=== PATIENT | female | born 1935 | race Caucasian/White ===

== ENCOUNTER 2016-12-08 12:53 | Inpatient (IN) | payer MEDICARE, BC ==
[2016-12-08] MEDS ORDERED: Ketorolac 30 MG/ML SDV IVPUSH PRN (13:17)
[2016-12-08] MEDS ORDERED: Vancomycin 500 MG SDV IV SCH (13:45)
[2016-12-08] MEDS: Sodium Chloride 0.9% 10 ML Syringe FLUSH PRN (13:46)
[2016-12-08] MEDS: Sodium Chloride 0.9% 250 ML IV SCH (13:46)
[2016-12-08] MEDS ORDERED: Vancomycin 500 MG, Vancomycin 750 MG in Sodium Chloride 0.9% 250 ML IV SCH (14:00)
[2016-12-08] MEDS ORDERED: Ampicillin/Sulbactam Na 3 GM in Sodium Chloride 0.9% 100 ML IV SCH (16:00)
--- NOTE | 2016-12-08 16:59 | PCM.HP ---
H&P History of Present Illness - General Date of Service: 12/08/16 Admit Problem/Dx: Admission Diagnosis/Problem Admission Diagnosis/Problem Cellulitis Source of Information: Patient History Limitations: Reports: No Limitations - History of Present Illness Initial Comments - Free Text/Narative: 81-year-old female admitted from the clinic because of pain in the right foot. This started last week when she stepped on a piece of stick. She developed infection that has been treated with initially clindamycin and then Levaquin. However she failed outpatient therapy with the pain and swelling getting worse and any weightbearing makes it worse. There has been no ulceration,neither is she attended with any fever or chills. She is otherwise healthy with very few active medical problems including osteoarthritis and knee replacement on that side on the right.She also has stable HTN head Pain Score (Numeric/FACES): 4 Rt foot Pain Score (Numeric/FACES): 8 - Related Data Allergies/Adverse Reactions: Allergies Allergy/AdvReac Type Severity Reaction Status Date / Time No Known Allergies Allergy Verified 12/08/16 15:38 Home Medications: Home Meds Aspirin [Adult Low Dose Aspirin EC] 81 mg PO DAILY 11/27/13 [History] Gluc 2KCl/Chondr/Makayla Hy/Hy Ac [Glucosamine & Chondroitin Cap] 1 each PO DAILY 11/27/13 [History] Multivitamin [Multivitamins] 1 cap PO DAILY 11/27/13 [History] Acetaminophen 1,000 mg PO Q8H PRN 04/23/16 [History] Acetaminophen/Diphenhydramine [Tylenol Pm Ex-Strength Caplet] 1 tab PO BEDTIME PRN 04/23/16 [History] Calcium Carbonate/Vitamin D3 [Calcium 500-Vit D3 200 Tablet] 1 tab PO DAILY [History] E-Z Eye Vitamin 2 tab PO DAILY 04/23/16 [History] Metoprolol Succinate 50 mg PO DAILY 04/23/16 [History] Meloxicam [Mobic] 15 mg PO DAILY 12/08/16 [History] Past Medical History HEENT History: Reports: Cataract, Hard of Hearing, Impaired Vision Cardiovascular History: Reports: Arrhythmia Genitourinary History: Reports: Renal Calculus, UTI, Recurrent PEDIATRIC DIETICIAN History: Reports: Dysfunctional Uterine Bleeding, Fibroids, , Spontaneous Other OB/BYN History: HYSTERECTOMY Musculoskeletal History: Reports: Arthritis Endocrine/Metabolic History: Reports: Osteoporosis Hematologic History: Reports: Anemia Oncologic (Cancer) History: Reports: Other (See Below) Other Oncologic History: SKIN CA - Infectious Disease History Infectious Disease History: Reports: Chicken Pox, Mumps - Past Surgical History HEENT Surgical History: Reports: Cataract Surgery, Tonsillectomy GI Surgical History: Reports: Colonoscopy Musculoskeletal Surgical History: Reports: Joint Replacement, Knee Replacement Social & Family History - Family History Family Medical History: Noncontributory - Tobacco Use Smoking Status *Q: Never Smoker Second Hand Smoke Exposure: No - Caffeine Use Caffeine Use: Reports: Coffee, Soda - Alcohol Use Days Per Week of Alcohol Use: 0 Number of Drinks Per Day: 0 Total Drinks Per Week: 0 - Recreational Drug Use Recreational Drug Use: No Drug Use in Last 12 Months: No H&P Review of Systems - Review of Systems: Review Of Systems: ROS reveals no pertinent complaints other than HPI. Exam - Exam Exam: See Below - Vital Signs Vital Signs: Last Vital Signs Temp 98.1 F 12/08/16 15:57 Pulse 65 12/08/16 15:57 Resp 18 12/08/16 15:57 BP 126/65 12/08/16 15:57 Pulse Ox 100 12/08/16 15:57 Weight: 71.622 kg - Exam General: Alert, Oriented, 4 HEENT: PERRLA, Hearing Intact, Mucosa Moist & [place], Nares Patent, Normal Nasal Septum, Posterior Pharynx Clear, Conjunctiva Clear, EOMI, EACs Clear, TMs Clear Neck: Supple, Trachea Midline, 2 Lungs: Clear to Auscultation, Normal Respiratory Effort Cardiovascular: Regular Rate, Regular Rhythm Abdomen: Normal Bowel Sounds, Soft (Female) Exam: Deferred Rectal (Female) Exam: Deferred Back Exam: Normal Inspection, Full Range of Motion, NT Extremities: Other (Rt foot red,up to ankle. First joint inflamed,tender.) Skin: Warm Neurological: Cranial Nerves Intact, Reflexes Equal Bilateral Neuro Extensive - Mental Status: Alert, Oriented x3, Normal Mood/Affect, Normal Cognition Neuro Extensive - Motor, Sensory, Reflexes: CN II-XII Intact, Normal Gait, Normal Reflexes Psychiatric: Alert - Patient Data Lab Results last 24 hrs: Laboratory Results - last 24 hr 12/08/16 12/08/16 12/08/16 Range/Units 13:40 13:40 13:40 WBC 8.3 (4.5-12.0) X10-3/uL RBC 3.77 (3.23-5.20) x10(6)uL Hgb 11.4 L (11.5-15.5) g/dL Hct 34.0 (30.0-51.3) % MCV 90.0 (80-96) fL MCH 30.2 (27.7-33.6) pg MCHC 33.6 (32.2-35.4) g/dL RDW 12.8 (11.5-15.5) % Plt Count 307 (125-369) X10(3)uL MPV 8.3 (7.4-10.4) fL Neut % (Auto) 80.5 (46-82) % Lymph % (Auto) 6.5 L (13-37) % Dewey % (Auto) 9.4 (4-12) % Eos % (Auto) 3 (1.0-5.0) % Baso % (Auto) 0 (0-2) % Neut # (Auto) 6.7 (1.6-8.3) # Lymph # (Auto) 0.5 L (0.6-5.0) # Dewey # (Auto) 0.8 (0.0-1.3) # Eos # (Auto) 0.3 (0.0-0.8) # Baso # (Auto) 0.0 (0.0-0.2) # ESR 68 H (0-20) mm/hr Sodium (135-145) mmol/L Potassium (3.5-5.3) mmol/L Chloride (100-110) mmol/L Carbon Dioxide (23-29) mmol/L BUN (8-23) mg/dL Creatinine (0.6-1.3) mg/dL Est Cr Clr Drug Dosing mL/min Estimated GFR (MDRD) (>60) BUN/Creatinine Ratio (9-20) Glucose (80-116) mg/dL Uric Acid 5.3 (3.0-7.0) mg/dL Calcium (8.6-10.2) mg/dL C-Reactive Protein 10.7 H* (0.0-1.0) mg/dL 12/08/16 Range/Units 13:40 WBC (4.5-12.0) X10-3/uL RBC (3.23-5.20) x10(6)uL Hgb (11.5-15.5) g/dL Hct (30.0-51.3) % MCV (80-96) fL MCH (27.7-33.6) pg MCHC (32.2-35.4) g/dL RDW (11.5-15.5) % Plt Count (125-369) X10(3)uL MPV (7.4-10.4) fL Neut % (Auto) (46-82) % Lymph % (Auto) (13-37) % Dewey % (Auto) (4-12) % Eos % (Auto) (1.0-5.0) % Baso % (Auto) (0-2) % Neut # (Auto) (1.6-8.3) # Lymph # (Auto) (0.6-5.0) # Dewey # (Auto) (0.0-1.3) # Eos # (Auto) (0.0-0.8) # Baso # (Auto) (0.0-0.2) # ESR (0-20) mm/hr Sodium 140 (135-145) mmol/L Potassium 4.5 (3.5-5.3) mmol/L Chloride 108 (100-110) mmol/L Carbon Dioxide 22 L (23-29) mmol/L BUN 19 (8-23) mg/dL Creatinine 1.0 (0.6-1.3) mg/dL Est Cr Clr Drug Dosing 43.53 mL/min Estimated GFR (MDRD) 53 L (>60) BUN/Creatinine Ratio 19.0 (9-20) Glucose 110 (80-116) mg/dL Uric Acid (3.0-7.0) mg/dL Calcium 9.1 (8.6-10.2) mg/dL C-Reactive Protein (0.0-1.0) mg/dL Result Diagrams: 12/08/16 13:40 12/08/16 13:40 *Q Meaningful Use (ADM) - VTE *Q VTE Criteria *Q: - Stroke *Q Stroke Criteria *Q: - AMI *Q AMI Criteria *Q: - Problem List (1) Cellulitis SNOMED Code(s): 307587816 ICD Code: L03.90 - CELLULITIS, UNSPECIFIED Status: Acute Current Visit: Yes Qualifiers: Site of cellulitis: extremity (2) HTN (hypertension) SNOMED Code(s): 47275676 ICD Code: I10 - ESSENTIAL (PRIMARY) HYPERTENSION Status: Acute Current Visit: Yes Qualifiers: Hypertension type: essential hypertension Qualified Code(s): I10 - Essential (primary) hypertension (3) Osteoarth NOS-unspec SNOMED Code(s): 401297519 ICD Code: M19.90 - UNSPECIFIED OSTEOARTHRITIS, UNSPECIFIED SITE Status: Acute Current Visit: Yes Qualifiers: Osteoarthritis location: knee Problem List Initiated/Reviewed/Updated: Yes Orders Last 24hrs: Active Orders 24 hr Category Date Time Status Admission Status [Patient Status] [ADT] Routine ADT 12/08/16 13:02 Active Oxygen Therapy [RC] PRN Care 12/08/16 13:17 Active Up ad Kandis [RC] ASDIRECTED Care 12/08/16 13:17 Active VTE/DVT Education [RC] Per Unit Routine Care 12/08/16 13:17 Active Vital Signs [RC] 08,16,00 Care 12/08/16 13:17 Active Consult to Physician [CONS] Routine Cons 12/08/16 13:17 Ordered Regular Diet [DIET] Diet 12/08/16 Breakfast Active Ciprofloxacin [Ciprofloxacin HCl] Med 12/08/16 21:00 Active 250 mg PO BID Ciprofloxacin [Ciprofloxacin HCl] Med 12/08/16 21:00 Active 500 mg PO BID Ketorolac [Toradol] Med 12/08/16 13:17 Active 15 mg IVPUSH Q6H PRN Sodium Chloride 0.9% [Normal Saline] 250 ml Med 12/08/16 14:00 Active IV ASDIRECTED Sodium Chloride 0.9% [Saline Flush] Med 12/08/16 13:17 Active 10 ml FLUSH ASDIRECTED PRN Vancomycin Med 12/08/16 13:45 Pending See Dose Instructions IV ASDIRECTED Vancomycin 500 mg Med 12/09/16 14:00 Active Vancomycin 750 mg Sodium Chloride 0.9% [Normal Saline] 250 ml IV Q24H Peripheral IV Insertion Adult [OM.PC] Routine Oth 12/08/16 13:17 Ordered Resuscitation Status Routine Resus Stat 12/08/16 13:17 Ordered Medication Orders Ciprofloxacin (Ciprofloxacin Hcl) 500 mg PO BID OREN Ciprofloxacin (Ciprofloxacin Hcl) 250 mg PO BID OREN Sodium Chloride (Normal Saline) 250 mls @ 100 mls/hr IV ASDIRECTED OREN Last Admin: 12/08/16 13:46 Dose: 100 mls/hr Vancomycin HCl 500 mg/Vancomycin HCl 750 mg/ Sodium Chloride 250 mls @ 167 mls/ hr IV Q24H OREN Ketorolac Tromethamine (Toradol) 15 mg IVPUSH Q6H PRN PRN Reason: Pain (moderate 4-6) Sodium Chloride (Saline Flush) 10 ml FLUSH ASDIRECTED PRN PRN Reason: Keep Vein Open Last Admin: 12/08/16 13:46 Dose: 10 ml Vancomycin HCl (Vancomycin) 0 mg IV ASDIRECTED [facility] Assessment/Plan Comment:: I have consulted Dr. Mingo Manrique to make sure there is no septic arthritis of the joint. In the meantime I've chosen vancomycin and Rocephin IV for treatment. I've also recommended warm compresses,elevation and Tylenol or ibuprofen when necessary for pain anticipate a one to two-day hospital stay. We 'll continue with home medications for hypertension OA
[2016-12-08] MEDS: Ciprofloxacin 250 MG Tab PO SCH (21:18)
[2016-12-08] MEDS: Ciprofloxacin 500 MG Tab PO SCH (21:18)
--- NOTE | 2016-12-09 01:00 | CONS ---
DATE OF CONSULTATION: 12/08/2016 PROBLEM: Cellulitis, right foot. PERTINENT HISTORY: This healthy 81-year-old white female states that she stepped on a toothpick on approximately November 29. She thinks that the toothpick came out completely intact. She states there was a moderate amount of bleeding. She thought nothing of it and then started noticing some pain. On and it got worse, so she presented to [facility] and was examined by Dr. Rodriguez, who started her on clindamycin 300 mg p.o. q.i.d. She did not get better, so she returned to the clinic and was started on Levaquin, that also did not give her any relief, so she was admitted to the hospital for observation, intravenous medication, and consult. This patient states that she has had no other injuries to the foot. She has no real active pain when she is sitting, ambulation does cause some pain. Pain is more on the dorsal aspect of the foot. She started to note some swelling and mild erythema also on the top of the foot basically proximal to the toes. She denies any pain when moving the great toe, but when she flexes and extends her other toe she states that there is pain over the dorsal aspect of her foot. She has not run any fever, although she does report "a temperature of 99." PHYSICAL EXAMINATION: Today, is resting comfortably. Her vital signs are stable. There is some mild swelling of the dorsal aspect of the foot, it is approximately about 3.5 inches by about 3 inches. Very light erythema over the great toe and minimal swelling over the great toe. Again with passive range of motion of her toes, she has pain over the dorsal aspect signifying she has inflammation around the tendons, flexing of the ankle or great toe produces no discomfort. I cannot blot any fluid. Neurovascular integrity is intact. Dr. Blum has ordered CBC, appropriate panel and C-reactive protein. He is starting her on vancomycin 1 g every 12 hours. X-rays were taken and "are normal " ASSESSMENT: Puncture wound, right first toe with secondary cellulitis. PLAN: I would concur with the vancomycin for a possible methicillin-resistant Staph. Since this is a puncture wound and puncture wounds are often associated with Pseudomona I would recommend adding ciprofloxacin 750 p.o. every 12 hours. I will follow up with the patient tomorrow and observe for any increasing erythema or swelling pain or temperature that may necessitate surgical intervention, however I believe with the two antibiotics we have the puncture wound with possible Pseudomonas covered as well as methicillin-resistant Staph. /[id number] HORACIO/JESSICA MTDFern
[2016-12-09] MEDS: Acetaminophen 325 MG Tab PO PRN ×2 (01:48→13:22)
[2016-12-09] MEDS: Ciprofloxacin 500 MG Tab PO SCH ×2 (09:03→20:49)
[2016-12-09] MEDS: Ciprofloxacin 250 MG Tab PO SCH ×2 (09:03→20:50)
--- NOTE | 2016-12-09 12:35 | PN ---
DATE SEEN: 12/09/2016 CHIEF COMPLAINT: Right foot cellulitis. HISTORY OF PRESENT ILLNESS: This is a 81-year-old female with cellulitis of the right foot, which has improved over 24 hours on IV vancomycin and Rocephin. She has minimal pain. The redness is beginning to improve. The swelling persists. I did consult Dr. Manrique to make sure she does not have septic arthritis. REVIEW OF SYSTEMS: No fever or chills. MEDICATIONS: Reviewed. PAST MEDICAL HISTORY: Hypertension and osteoarthritis of the knees. PHYSICAL EXAMINATION: GENERAL: Well nourished, afebrile, and normotensive. EXTREMITIES: Right foot revealed redness of the first metatarsal, tenderness to palpation, but good range of motion at that joint. Peripheral pulses present. There is mild swelling of the dorsum of the foot. IMPRESSION: Cellulitis of right lower extremity. PLAN: Continue the current IV antibiotic regimen. Possibly discharge the patient tomorrow. I will order a CBC to be repeated in the morning. /[id number] TESSY/JESSICA
[2016-12-09] MEDS: Metoprolol Succinate 50 MG Tab.ER PO SCH (14:06)
[2016-12-09] MEDS: Chondroitin/Glucosamine Cap PO SCH (14:06)
[2016-12-09] MEDS: Beta-Carotene (Vitamin A) w/Vitamin C & E plus Minerals Tab PO SCH (14:06)
[2016-12-09] MEDS: Calcium Carbonate/Vitamin D3 1250 MG-200 Unit Tab PO SCH (14:06)
[2016-12-09] MEDS: Multivitamin Tab PO SCH (14:06)
[2016-12-09] MEDS: Aspirin 81 MG Tab.EC PO SCH (14:06)
[2016-12-09] MEDS: Vancomycin 500 MG, Vancomycin 750 MG in Sodium Chloride 0.9% 250 ML IV SCH (14:07)
[2016-12-09] MEDS: Acetaminophen/Diphenhydramine 500-25 MG Tab PO PRN (20:55)
[2016-12-10] MEDS: Acetaminophen 500 MG Tab PO PRN ×2 (01:46→15:49)
[2016-12-10] MEDS: Chondroitin/Glucosamine Cap PO SCH (09:25)
[2016-12-10] MEDS: Ciprofloxacin 250 MG Tab PO SCH ×2 (09:25→21:01)
[2016-12-10] MEDS: Calcium Carbonate/Vitamin D3 1250 MG-200 Unit Tab PO SCH (09:25)
[2016-12-10] MEDS: Beta-Carotene (Vitamin A) w/Vitamin C & E plus Minerals Tab PO SCH (09:25)
[2016-12-10] MEDS: Metoprolol Succinate 50 MG Tab.ER PO SCH (09:26)
[2016-12-10] MEDS: Ciprofloxacin 500 MG Tab PO SCH ×2 (09:26→21:00)
[2016-12-10] MEDS: Multivitamin Tab PO SCH (09:26)
[2016-12-10] MEDS: Aspirin 81 MG Tab.EC PO SCH (09:26)
--- NOTE | 2016-12-10 10:45 | PN ---
DATE SEEN: 12/09/2016 PROBLEM: Right foot cellulitis. SUBJECTIVE: The patient is feeling a little bit better today. OBJECTIVE: Her temperature is normal. The erythema has improved somewhat. She is getting some wrinkling in the skin, which is a good sign. She can move her toes well today. This includes the first toe where the puncture wound occurred and there is no pain. There is pain on palpation, however, on the dorsal except extensor tendons, which is mild. I would recommend that she continues IV antibiotics at least for another 48 hours and continue the Cipro. If she goes home over the weekend, I would recommend she be on something for staphylococcal methicillin-resistant oral antibiotic as well as continuing the Cipro. The patient states she was supposed to have a total hip done in the next couple weeks. I would recommend that she wait at least six weeks before doing a total hip to make sure that this infection does not reappear. The patient should have a C-reactive protein drawn again on Tuesday for recheck to ascertain that she continues to make improvement. (I have ordered this today.) /[id number] HORACIO/JESSICA
--- NOTE | 2016-12-10 12:13 | PN ---
DATE SEEN: 12/10/2016 SUBJECTIVE: China Fong is a delightful 81-year-old female, daughter from [place] in attendance. Complicated right foot infection due to "attacked by toothpick." No culture available. Lineation clearly defined, showed regressing and resolving inflammation, but it is still warm, tender, and sore. LABORATORY STUDIES: White count 8300 on admission and repeat 6200, CRP fell from 0.7 to 6.0, normal 0 to 1. OBJECTIVE: Marked erythema, redness, and discomfort. Puncture site present right at the MTP joint, a little bit on the medial side of right great toe. IMPRESSION: Complicated cellulitis. PLAN: As per Dr. Manrique's recommendation. We will continue oral ciprofloxacin 750 b.i.d. and vancomycin 500 mg IV. Nursing staff in attendance. /[id number] KRISTIN/JESSICA
[2016-12-10] MEDS: Vancomycin 500 MG, Vancomycin 750 MG in Sodium Chloride 0.9% 250 ML IV SCH (13:54)
[2016-12-10] MEDS: Acetaminophen/Diphenhydramine 500-25 MG Tab PO PRN (21:04)
[2016-12-11] MEDS: Acetaminophen 325 MG Tab PO PRN ×3 (03:55→23:48)
[2016-12-11] MEDS: Aspirin 81 MG Tab.EC PO SCH (08:26)
[2016-12-11] MEDS: Calcium Carbonate/Vitamin D3 1250 MG-200 Unit Tab PO SCH (08:27)
[2016-12-11] MEDS: Ciprofloxacin 250 MG Tab PO SCH ×2 (08:27→20:41)
[2016-12-11] MEDS: Ciprofloxacin 500 MG Tab PO SCH ×2 (08:27→20:42)
[2016-12-11] MEDS: Multivitamin Tab PO SCH (08:28)
[2016-12-11] MEDS: Beta-Carotene (Vitamin A) w/Vitamin C & E plus Minerals Tab PO SCH (08:29)
[2016-12-11] MEDS: Chondroitin/Glucosamine Cap PO SCH (08:34)
[2016-12-11] MEDS: Metoprolol Succinate 50 MG Tab.ER PO SCH (08:35)
--- NOTE | 2016-12-11 12:57 | PN ---
DATE SEEN: 12/11/2016 SUBJECTIVE: Kiki Fong is a 81-year-old female, seen today for review. Had a puncture wound to her right great toe. Complicated infection. Present medications include ciprofloxacin 500 mg 1 p.o. b.i.d., vancomycin IV per protocol. Has been otherwise doing well. Not so happy that results have improvement by her observation been less than successful. Outstanding laboratory studies. CRP planned for today. OBJECTIVE: VITAL SIGNS: Stable. 36.5, 106/66, 16, 97%, pulse of 74 per exam. EXTREMITIES: Unremarkable. Dorsalis pedis, posterior tibial palpable. Erythema along the distal foot great toe particular slowly improving. Complicated cellulitis. PLAN: Continue oral ciprofloxacin, continue IV vancomycin. Medications and care and treatment appropriate. /[id number] KRISTIN/JESSICA
[2016-12-11] MEDS: Vancomycin 500 MG, Vancomycin 750 MG in Sodium Chloride 0.9% 250 ML IV SCH (13:36)
[2016-12-11] MEDS: Sodium Chloride 0.9% 250 ML IV SCH (13:37)
[2016-12-11] MEDS: Acetaminophen/Diphenhydramine 500-25 MG Tab PO PRN (20:49)
[2016-12-12] MEDS: Metoprolol Succinate 50 MG Tab.ER PO SCH (08:19)
[2016-12-12] MEDS: Beta-Carotene (Vitamin A) w/Vitamin C & E plus Minerals Tab PO SCH (08:19)
[2016-12-12] MEDS: Calcium Carbonate/Vitamin D3 1250 MG-200 Unit Tab PO SCH (08:19)
[2016-12-12] MEDS: Aspirin 81 MG Tab.EC PO SCH (08:19)
[2016-12-12] MEDS: Chondroitin/Glucosamine Cap PO SCH (08:19)
[2016-12-12] MEDS: Ciprofloxacin 250 MG Tab PO SCH ×2 (08:20→20:23)
[2016-12-12] MEDS: Ciprofloxacin 500 MG Tab PO SCH ×2 (08:20→20:23)
[2016-12-12] MEDS: Multivitamin Tab PO SCH (08:20)
[2016-12-12] MEDS: Vancomycin 500 MG, Vancomycin 750 MG in Sodium Chloride 0.9% 250 ML IV SCH (08:37)
[2016-12-12] MEDS: Sodium Chloride 0.9% 10 ML Syringe FLUSH PRN ×2 (08:38→20:20)
[2016-12-12] MEDS: Acetaminophen 500 MG Tab PO PRN (15:49)
--- NOTE | 2016-12-12 15:51 | PN ---
DATE SEEN: 12/12/2016 SUBJECTIVE: China Fong is a 81-year-old, female, who is seen today for complicated cellulitis secondary to puncture wound. Feeling generally better. The pain is moderating. Laboratory studies none recent. CRP has fallen from 10.7 to 6 yesterday to 5.0, vancomycin trough 8.9 adjusted per pharmacy. PHYSICAL EXAMINATION: VITAL SIGNS: Stable. 36.4, 76, 117/73 17, 100% room air. EXTREMITIES: Lower extremities were well perfused. Sensation was normal. Moderate erythematous changes right lower leg appears to be improving. Complicated cellulitis right lower extremity. PLAN: Continue with IV medicines. Dr. Manrique's will be participating in her care and followup. /[id number] KRISTIN/JESSICA
[2016-12-12] MEDS: Acetaminophen/Diphenhydramine 500-25 MG Tab PO PRN (22:09)
[2016-12-12] MEDS: Acetaminophen 325 MG Tab PO PRN (23:27)
[2016-12-13] MEDS: Vancomycin 500 MG, Vancomycin 750 MG in Sodium Chloride 0.9% 250 ML IV SCH ×2 (02:43→21:08)
[2016-12-13] MEDS: Sodium Chloride 0.9% 10 ML Syringe FLUSH PRN ×2 (02:50→21:14)
[2016-12-13] MEDS: Sodium Chloride 0.9% 250 ML IV SCH (02:51)
[2016-12-13] MEDS: Chondroitin/Glucosamine Cap PO SCH (08:39)
[2016-12-13] MEDS: Ciprofloxacin 500 MG Tab PO SCH ×2 (08:39→21:08)
[2016-12-13] MEDS: Aspirin 81 MG Tab.EC PO SCH (08:40)
[2016-12-13] MEDS: Multivitamin Tab PO SCH (08:40)
[2016-12-13] MEDS: Metoprolol Succinate 50 MG Tab.ER PO SCH (08:40)
[2016-12-13] MEDS: Ciprofloxacin 250 MG Tab PO SCH ×2 (08:40→21:08)
[2016-12-13] MEDS: Calcium Carbonate/Vitamin D3 1250 MG-200 Unit Tab PO SCH (08:41)
[2016-12-13] MEDS: Beta-Carotene (Vitamin A) w/Vitamin C & E plus Minerals Tab PO SCH (08:41)
[2016-12-13] MEDS: Acetaminophen 500 MG Tab PO PRN (11:01)
--- NOTE | 2016-12-13 14:00 | PN ---
DATE SEEN: 12/13/2016 ADDENDUM: I spoke with Dr. Mingo Manrique's orthopedics. Feels strongly that antibiotic therapy needs to be continued intravenously. We will cancel discharge with expectations to continue both IV vancomycin and oral metronidazole. /[id number] KRISTIN/JESSICA
--- NOTE | 2016-12-13 15:26 | PN ---
DATE SEEN: 12/13/2016 PROBLEM: Cellulitis of right foot and ankle. SUBJECTIVE: The patient still rates her pain as a 5 on a scale of 0-10. It has however improved. OBJECTIVE: Today, her vital signs are stable. C-reactive protein has gone down from little over 10 to 5. Inspection reveals swelling to have decreased very well. The erythema is present just a little bit over the great toe, little bit of pain on palpation of the puncture wound, but there is no obvious abscess developing in this area. The skin is becoming wrinkled and she has lost some epithelium over the first toe signifying that medication currently is working. I believe that she should continue IV antibiotics and therefore, we will keep her today. C-reactive protein will be drawn tomorrow morning. This will be reviewed and she will be checked clinically. It should be noted her vancomycin was increased from once every 24 hours to once every 18 hours. We do not have a vancomycin trough available for review again after going to one dose every 18 to approximately 1400 hours tomorrow. If this clinically and by laboratory results and vancomycin trough levels are acceptable, we can determine if we can treat this as an outpatient through the ER or possibly swing bed. At this point, the patient is still requiring IV antibiotics and appropriate decisions will be made tomorrow. Pending previous discussion. /[id number] HORACIO/JESSICA
[2016-12-13] MEDS: Acetaminophen/Diphenhydramine 500-25 MG Tab PO PRN (21:28)
[2016-12-13] MEDS: Acetaminophen 325 MG Tab PO PRN (21:28)
[2016-12-14] MEDS: Acetaminophen 500 MG Tab PO PRN (05:28)
[2016-12-14] MEDS: Calcium Carbonate/Vitamin D3 1250 MG-200 Unit Tab PO SCH (08:21)
[2016-12-14] MEDS: Ciprofloxacin 500 MG Tab PO SCH (08:21)
[2016-12-14] MEDS: Ciprofloxacin 250 MG Tab PO SCH (08:21)
[2016-12-14] MEDS: Multivitamin Tab PO SCH (08:22)
[2016-12-14] MEDS: Chondroitin/Glucosamine Cap PO SCH (08:22)
[2016-12-14] MEDS: Beta-Carotene (Vitamin A) w/Vitamin C & E plus Minerals Tab PO SCH (08:22)
[2016-12-14] MEDS: Aspirin 81 MG Tab.EC PO SCH (08:22)
[2016-12-14] MEDS: Metoprolol Succinate 50 MG Tab.ER PO SCH (08:22)
--- NOTE | 2016-12-14 08:58 | PN ---
DATE OF VISIT: 12/13/2016 REASON FOR VISIT: Complicated cellulitis, right great toe. HOSPITAL COURSE: China Fong is a 81-year-old female, who was admitted to [place] for an outpatient resistant and complicated infection of right great toe. She had stepped on a toothpick. She had several outpatient antibiotic therapies including cephalexin, clindamycin, and Levaquin. The symptoms worsened, complicated with pain and swelling. She was admitted to the hospital, underwent aggressive IV antibiotic therapy, intervention and care, close observation. Inflammatory markers were much improved. CRP fell from 10.7 to 6 to 5.0 on 12/11/2016. Pain improved. Redness, swelling, and demarcated line, and motion showed improvement. She responded well to oral ciprofloxacin and intravenous vancomycin. At the time of discharge, marked improvement in redness, marked improvement in pain, still some induration and warmth, but markedly improved. Agreed to discharge the patient on oral metronidazole 500 mg 1 p.o. t.i.d. and vancomycin 125 mg 1 p.o. q.i.d. 7 days' duration. She will be seen by Dr. Rodriguez on 12/18/2015. SURGICAL PROCEDURES: None. CONSULTATIONS: Dr. Mingo Manrique, Orthopedics. /[id number] KRISTIN/JESSICA
--- NOTE | 2016-12-14 13:19 | CT ---
INDICATION: Infection right toe area after penetration of a toothpick from the medial aspect of the base of the great toe. CT LOWER EXTREMITY WITHOUT CONTRAST FOR RIGHT TOE AREA: Spiral 0.63-mm axial sections were obtained through the feet with sagittal and coronal reconstructions, without IV contrast, 12/14/2016. An oil pill was utilized to crow the area of penetration of the toothpick into the medial base area of the great toe. There is increased soft tissue density surrounding the proximal phalanx and metatarsal tarsal joint area with a semicircular area of relatively prominent increased density along the plantar aspect of the first metatarsophalangeal joint, measuring 25 x 10 mm. The possibility that this represents an abscess is difficult to exclude. Additionally, cellulitis could be present surrounding the first metatarsophalangeal joint. A definite radiopaque foreign body was not identified. IMPRESSION: 1. No definite radiopaque foreign body identified. 2. Cellulitis with possible abscess formation along the plantar aspect of the first metatarsophalangeal joint. Cellulitis appears to extend along the dorsum of that joint also, and surrounds the joint completely. Increased density of the soft tissues in general is also noted, suggesting a more widespread cellulitis involving most of the mid to distal foot on the right. An ultrasound of the right foot to confirm a fluid collection may be helpful. Report was given in person to Dr. Manrique at 1253 hours, 12/14/2016. Total Exam DLP = 558.51 mGy-cm. MTDD
[2016-12-14] MEDS: Sodium Chloride 0.9% 10 ML Syringe FLUSH PRN (14:42)
[2016-12-14] MEDS: Vancomycin 500 MG, Vancomycin 750 MG in Sodium Chloride 0.9% 250 ML IV SCH (15:08)
[2016-12-14] MEDS: Sodium Chloride 0.9% 250 ML IV SCH (15:08)
[2016-12-14 20:16] VITALS: BP 122/72
--- NOTE | 2016-12-15 11:47 | US ---
INDICATION: Question right foot abscess plantar aspect great toe area. ULTRASOUND EXTREMITY NON-VASCULAR, RIGHT: Multiple ultrasonic images were obtained of the right foot with the left for comparison and revealed no evidence of an abscess formation. There is, however, noted marked increased thickening on the left at the ball of the foot of the plantar soft tissues on the right compared with the left, suggesting the possibility of an inflammatory process. No focal mass was identified - no abscess is seen. The tissues appear very slightly decreased in echogenicity and markedly thicker on the right than on the left in the plantar aspect of the foot - ball of the foot on the right. MTDD
--- NOTE | 2016-12-16 00:33 | DISCH ---
DISCHARGE DATE: 12/14/2016 HOSPITAL COURSE: China Fong is a 81-year-old, female, admitted with complicated right great toe infection. She had been refractory to outpatient treatment including clindamycin and Levaquin. She was admitted to the hospital and was treated with aggressive antibiotic therapy including oral ciprofloxacin and IV vancomycin. Clinical response was satisfactory. Pain reduced markedly, symptoms improved, demarcations of the swelling was well delineated with some ecchymotic changes. Laboratory markers; CRP fell from 10 to 7 to 5 to 3.8, at the time of discharge. There were no white count changes. Blood culture was negative. CT revealed no evidence of retained foreign body i.e. toothpick. In response, it appears to be satisfactory. It was elected to continue outpatient vancomycin q.12 hours intervals per [facility], complementary care and well being. Continue ciprofloxacin 750 b.i.d., observation, and follow up with Dr. Mingo Manrique's. SURGICAL PROCEDURE: None. CONSULTATION: Mingo Manrique MD. /[id number] /JESSICA
== END 2016-12-14 18:50 | disposition home or self-care (01) | DRG 603 ==
LOC: FB.MS 13:13
PROVIDERS: ADMIT Family Medicine; ATTEND Family Medicine
DX: L03.031 Cellulitis of right toe (principal); I10 Essential (primary) hypertension; Z96.651 Presence of right artificial knee joint; M17.0 Bilateral primary osteoarthritis of knee
CPT/HCPCS: 36415; 73700-RT; 76881-RT; 80048; 80202; 84550; 85025; 85651; 86140; A9270-GY; J3370; J7050

== ENCOUNTER 2018-12-20 07:35 | Day surgery (SDC) | payer MEDICARE, BC ==
[2018-12-20] MEDS ORDERED: Propofol 200 MG/20 ML SDV IV ONE (07:36)
[2018-12-20] MEDS ORDERED: Lactated Ringers 1,000 ML IV SCH (07:45)
--- NOTE | 2018-12-20 09:44 | PCM.OPNOTE ---
- General Post-Op/Procedure Note Date of Surgery/Procedure: 12/20/18 Operative Procedure(s): c scope with bx Findings: colitis ascending colon sigmoid diverticulosis Pre Op Diagnosis: obstipation, personal hx of colon polyps Post-Op Diagnosis: colitis ascending colon. sigmoid diverticulosis Anesthesia Technique: MAC Primary Surgeon: Garo Houser Anesthesia Provider: Valerie Webb (CRNAS [place]) Pathology: ascending colon Complications: None Condition: Good Free Text/Narrative:: see dictation
[2018-12-20 10:47] VITALS: BP 125/68
--- NOTE | 2018-12-20 11:22 | OR ---
DATE OF OPERATION: 12/20/2018 SURGEON: Garo Houser MD PROCEDURE PERFORMED: Colonoscopy with cold forceps biopsy. PREOPERATIVE DIAGNOSES: History of obstipation and colon polyps. POSTOPERATIVE DIAGNOSES: Colitis of the ascending colon and sigmoid diverticulosis. INDICATIONS FOR PROCEDURE: This is an 83-year-old white female, who is referred with the above-mentioned complaints. She was offered and accepted colonoscopy. DESCRIPTION OF OPERATION: After an excellent sedation was administered, digital rectal exam was performed. No marked abnormality was noted. Flexible colonoscope was inserted and advanced to the cecum. The following findings were noted. Ascending colon, evidence of colitis with diffuse hemorrhage. Multiple biopsies were taken. Transverse colon was unremarkable. Descending colon, unremarkable. Sigmoid, occasional diverticula. Rectum and anus, unremarkable. Colon was deflated. Scope was removed. The patient tolerated the procedures well. Results by letter. /[id number] /JODIL
== END 2018-12-20 10:47 | disposition home or self-care (01) ==
LOC: FB.SDS 07:35
PROVIDERS: ATTEND Surgery
DX: K57.30 Diverticulosis of large intestine without perforation or abscess without bleeding (principal); K52.9 Noninfective gastroenteritis and colitis, unspecified; K59.00 Constipation, unspecified; K21.9 Gastro-esophageal reflux disease without esophagitis; F32.9 Major depressive disorder, single episode, unspecified; M19.90 Unspecified osteoarthritis, unspecified site; Z86.010 Personal history of colon polyps; Z79.1 Long term (current) use of non-steroidal anti-inflammatories (NSAID); Z79.899 Other long term (current) drug therapy
CPT/HCPCS: 00811; 45380; 88305; J2704; J7120

== ENCOUNTER 2019-05-17 08:54 | Emergency (ER) | payer MEDICARE, BC ==
[2019-05-17] MEDS: Sodium Chloride 0.9% 10 ML Syringe FLUSH PRN ×2 (09:20→12:58)
--- NOTE | 2019-05-17 09:27 | EDM.PDOC ---
ED HPI GENERAL MEDICAL PROBLEM - General Chief Complaint: Chest Pain Stated Complaint: CHEST PAIN Time Seen by Provider: 05/17/19 09:15 Source of Information: Reports: Patient, Family History Limitations: Reports: No Limitations - History of Present Illness INITIAL COMMENTS - FREE TEXT/NARRATIVE: pt developed palpitation with pressure in the chest this am had hip replacement 2 months ago and at the time metoprolol ( for SVT) was stopped and not restarted recently started having frequent episodes of tachycardia in the last one week , lasting about 2-min , was seen in clinic and had Holter monitor placed yesterday, and today woke with episode of tachycardia dizziness , weakness Onset: Gradual Onset Date: 05/16/19 Duration: Day(s): (5), Getting Worse Location: Reports: Generalized Severity: Moderate Worsens with: Reports: Movement Context: Reports: Activity Associated Symptoms: Reports: Headaches, Loss of Appetite, Malaise, Weakness Treatments MANUFACTURING ENGINEERING DIRECTOR: Reports: Aspirin (2 tabs of aspirin) - Related Data Allergies Allergy/AdvReac Type Severity Reaction Status Date / Time No Known Allergies Allergy Verified 12/20/18 08:10 Home Meds: Home Meds RX: Multivitamin [Multivitamins] 1 cap PO DAILY 11/27/13 [History] E-Z Eye Vitamin 2 tab PO DAILY 04/23/16 [History] RX: Acetaminophen/Diphenhydramine [Tylenol Pm Ex-Strength Caplet] 1 tab PO Q8HR PRN 04/23/16 [History] RX: Calcium Carbonate/Vitamin D3 [Calcium 500-Vit D3 200 Tablet] 1 tab PO DAILY 04/23/16 [History] RX: Metoprolol Succinate 50 mg PO DAILY 04/23/16 [History] RX: Meloxicam [Mobic] 15 mg PO DAILY 12/08/16 [History] RX: Acetaminophen/Diphenhydramine [Tylenol Pm Ex-Strength Caplet] 2 tab PO BEDTIME PRN 12/19/18 [History] RX: Calcium Carbonate [Calcium Antacid] 1 tab PO TID 12/19/18 [History] RX: Lifitegrast [Xiidra] 1 drop EYEBOTH BID 12/19/18 [History] RX: Omeprazole 1 cap PO DAILY PRN 12/19/18 [History] Cefuroxime Axetil [Ceftin] 500 mg PO BID #10 tablet 05/17/19 [Rx] Past Medical History HEENT History: Reports: Cataract, Hard of Hearing, Impaired Vision Cardiovascular History: Reports: Arrhythmia Gastrointestinal History: Reports: Colon Polyp Genitourinary History: Reports: Renal Calculus, UTI, Recurrent FLIGHT DIRECTOR History: Reports: Dysfunctional Uterine Bleeding, Fibroids, , Spontaneous Other FLIGHT DIRECTOR History: HYSTERECTOMY Musculoskeletal History: Reports: Arthritis Endocrine/Metabolic History: Reports: Osteoporosis Hematologic History: Reports: Anemia Oncologic (Cancer) History: Reports: Other (See Below) Other Oncologic History: SKIN CA - Infectious Disease History Infectious Disease History: Reports: Chicken Pox, Mumps - Past Surgical History HEENT Surgical History: Reports: Cataract Surgery, Tonsillectomy GI Surgical History: Reports: Colonoscopy Female Surgical History: Reports: Hysterectomy Musculoskeletal Surgical History: Reports: Joint Replacement, Knee Replacement Social & Family History - Family History Family Medical History: Noncontributory - Caffeine Use Caffeine Use: Reports: Coffee, Soda ED ROS GENERAL - Review of Systems Review Of Systems: See Below Constitutional: Reports: No Symptoms HEENT: Reports: No Symptoms Respiratory: Reports: No Symptoms. Denies: Shortness of Breath, Wheezing Cardiovascular: Reports: Chest Pain (describes as chest pressure), Lightheadedness, Palpitations. Denies: Dyspnea on Exertion, Edema, Orthopnea, Syncope Endocrine: Reports: No Symptoms GI/Abdominal: Reports: Anorexia : Reports: Frequency, Urgency. Denies: Dysuria, Flank Pain Musculoskeletal: Reports: No Symptoms Skin: Reports: No Symptoms Neurological: Reports: Dizziness Psychiatric: Reports: No Symptoms Hematologic/Lymphatic: Reports: No Symptoms Immunologic: Reports: No Symptoms ED EXAM, GENERAL - Physical Exam Exam: See Below Free Text/Narrative:: alert oriented not in any distress Exam Limited By: No Limitations General Appearance: Alert, WD/WN, No Apparent Distress Eye Exam: Bilateral Eye: EOMI, Normal Inspection Ears: Normal External Exam Ear Exam: Bilateral Ear: TM normal Throat/Mouth: Normal Inspection, Normal Oropharynx Head: Normocephalic Neck: Normal Inspection, Supple, Non-Tender Respiratory/Chest: No Respiratory Distress, Lungs Clear Cardiovascular: Regular Rate, Rhythm, No Edema, No Murmur Peripheral Pulses: 2+: Dorsalis Pedis (L), Dorsalis Pedis (R) GI/Abdominal: Normal Bowel Sounds, Soft, Non-Tender Back Exam: Full Range of Motion. No: CVA Tenderness (R), CVA Tenderness (L) Extremities: Normal Range of Motion Neurological: Alert, Oriented, CN II-XII Intact, Normal Cognition, No Motor/ Sensory Deficits Psychiatric: Normal Affect Skin Exam: Warm EKG INTERPRETATION EKG Date: 05/17/19 Rhythm: NSR [place]: Normal P-Wave: Present Course - Vital Signs Last Recorded V/S: Last Vital Signs Temp 36.4 C 05/17/19 09:00 Pulse 78 05/17/19 09:00 Resp 16 05/17/19 09:00 BP 123/72 05/17/19 09:00 Pulse Ox 100 05/17/19 09:00 - Orders/Labs/Meds Orders: Active Orders 24 hr Category Date Time Status CULTURE URINE [RM] Stat Lab 05/17/19 11:58 Ordered Aspirin Med 05/17/19 09:30 Active 162 mg PO .NOW Sodium Chloride 0.9% [Saline Flush] Med 05/17/19 09:35 Active 10 ml FLUSH ASDIRECTED PRN EKG 12 Lead [EK] Routine Ther 05/17/19 09:25 Ordered Medication Orders Aspirin (Aspirin) 162 mg PO .NOW OREN Last Admin: 05/17/19 09:35 Dose: 162 mg Sodium Chloride (Saline Flush) 10 ml FLUSH ASDIRECTED PRN PRN Reason: IV Use Last Admin: 05/17/19 09:20 Dose: 10 ml Labs: Laboratory Tests 05/17/19 05/17/19 05/17/19 Range/Units 09:45 09:45 09:45 WBC 5.4 (4.5-12.0) X10-3/uL RBC 4.28 (3.23-5.20) x10(6)uL Hgb 13.3 (11.5-15.5) g/dL Hct 40.0 (30.0-51.3) % MCV 93.5 (80-96) fL MCH 31.1 (27.7-33.6) pg MCHC 33.3 (32.2-35.4) g/dL RDW 11.7 (11.5-15.5) % Plt Count 276 (125-369) X10(3)uL MPV 8.7 (7.4-10.4) fL Neut % (Auto) 80.7 (46-82) % Lymph % (Auto) 9.7 L (13-37) % [place] % (Auto) 7.3 (4-12) % Eos % (Auto) 2 (1.0-5.0) % Baso % (Auto) 0 (0-2) % Neut # (Auto) 4.4 (1.6-8.3) # Lymph # (Auto) 0.5 L (0.6-5.0) # [place] # (Auto) 0.4 (0.0-1.3) # Eos # (Auto) 0.1 (0.0-0.8) # Baso # (Auto) 0.0 (0.0-0.2) # Sodium 140 (135-145) mmol/L Potassium 4.3 (3.5-5.3) mmol/L Chloride 104 (100-110) mmol/L Carbon Dioxide 28 (21-32) mmol/L BUN 21 H (7-18) mg/dL Creatinine 1.1 H (0.55-1.02) mg/dL Est Cr Clr Drug Dosing 36.91 mL/min Estimated GFR (MDRD) 48 L (>60) BUN/Creatinine Ratio 19.1 (9-20) Glucose 94 (80-116) mg/dL Calcium 9.6 (8.6-10.2) mg/dL Magnesium (1.8-2.5) mg/dL Troponin I < 0.017 L (<0.017-0.056) ng/mL TSH, Ultra Sensitive (0.36-3.74) IU/mL Urine Color (YELLOW) Urine Appearance (CLEAR) Urine pH (5.0-6.5) Ur Specific [place] (1.010-1.025) Urine Protein (NEGATIVE) mg/dL Urine Glucose (UA) (NORMAL) mg/dL Urine Ketones (NEGATIVE) mg/dL Urine Occult Blood (NEGATIVE) Urine Nitrite (NEGATIVE) Urine Bilirubin (NEGATIVE) Urine Urobilinogen (NEGATIVE) mg/dL Ur Leukocyte Esterase (NEGATIVE) Urine WBC (0-5) Ur Squamous Epith Cells (NS,R,O) Urine Bacteria (NS) 05/17/19 05/17/19 05/17/19 Range/Units 09:45 09:45 10:31 WBC (4.5-12.0) X10-3/uL RBC (3.23-5.20) x10(6)uL Hgb (11.5-15.5) g/dL Hct (30.0-51.3) % MCV (80-96) fL MCH (27.7-33.6) pg MCHC (32.2-35.4) g/dL RDW (11.5-15.5) % Plt Count (125-369) X10(3)uL MPV (7.4-10.4) fL Neut % (Auto) (46-82) % Lymph % (Auto) (13-37) % [place] % (Auto) (4-12) % Eos % (Auto) (1.0-5.0) % Baso % (Auto) (0-2) % Neut # (Auto) (1.6-8.3) # Lymph # (Auto) (0.6-5.0) # [place] # (Auto) (0.0-1.3) # Eos # (Auto) (0.0-0.8) # Baso # (Auto) (0.0-0.2) # Sodium (135-145) mmol/L Potassium (3.5-5.3) mmol/L Chloride (100-110) mmol/L Carbon Dioxide (21-32) mmol/L BUN (7-18) mg/dL Creatinine (0.55-1.02) mg/dL Est Cr Clr Drug Dosing mL/min Estimated GFR (MDRD) (>60) BUN/Creatinine Ratio (9-20) Glucose (80-116) mg/dL Calcium (8.6-10.2) mg/dL Magnesium 2.1 (1.8-2.5) mg/dL Troponin I (<0.017-0.056) ng/mL TSH, Ultra Sensitive 2.79 (0.36-3.74) IU/mL Urine Color Yellow (YELLOW) Urine Appearance Slightly cloudy (CLEAR) Urine pH 5.0 (5.0-6.5) Ur Specific [place] 1.020 (1.010-1.025) Urine Protein Negative (NEGATIVE) mg/dL Urine Glucose (UA) Normal (NORMAL) mg/dL Urine Ketones Negative (NEGATIVE) mg/dL Urine Occult Blood Negative (NEGATIVE) Urine Nitrite Negative (NEGATIVE) Urine Bilirubin Negative (NEGATIVE) Urine Urobilinogen Normal (NEGATIVE) mg/dL Ur Leukocyte Esterase Large H (NEGATIVE) Urine WBC 10-20 H (0-5) Ur Squamous Epith Cells Few H (NS,R,O) Urine Bacteria Moderate H (NS) Meds: Medications Generic Name Dose Route Start Last Admin Trade Name Freq PRN Reason Stop Dose Admin Aspirin 162 mg 05/17/19 09:30 05/17/19 09:35 Aspirin PO 162 mg .NOW OREN Administration Sodium Chloride 10 ml 05/17/19 09:35 05/17/19 09:20 Saline Flush FLUSH 10 ml ASDIRECTED PRN Administration IV Use Discontinued Medications Generic Name Dose Route Start Last Admin Trade Name Freq PRN Reason Stop Dose Admin Sodium Chloride 500 mls @ 999 mls/hr 05/17/19 10:07 05/17/19 10:10 Normal Saline IV 05/17/19 10:37 999 mls/hr .BOLUS ONE Administration Ceftriaxone Sodium 1 gm/ 50 mls @ 200 mls/hr 05/17/19 11:37 05/17/19 12:24 Sodium Chloride IV 05/17/19 11:51 200 mls/hr ONETIME ONE Administration - Radiology Interpretation Free Text/Narrative:: reviewed pts lab: negative troponin, EKG normal , UA positive - Re-Assessments/Exams Free Text/Narrative Re-Assessment/Exam: 05/17/19 11:47 pt being treated for UTI Departure - Departure Time of Disposition: 12:50 Disposition: Home, Self-Care 01 Condition: Good Clinical Impression: UTI (urinary tract infection), Weakness generalized, Intermittent palpitations , Atypical chest pain, Atypical chest pain Prescriptions: Cefuroxime Axetil [Ceftin] 500 mg PO BID #10 tablet Referrals: Mahsa Motley NP [Primary Care Provider] - Forms: ED Department Discharge Additional Instructions: Pt to Follow up with PCP for further cardiac evaluation Increase fluid intake Ok to continue with metoprolol till seen by PCP or supervisor wrapping room - Problem List & Annotations (1) Intermittent palpitations SNOMED Code(s): 196454900 Code(s): R00.2 - PALPITATIONS Status: Acute Current Visit: Yes (2) UTI (urinary tract infection) SNOMED Code(s): 45578459 Code(s): N39.0 - URINARY TRACT INFECTION, SITE NOT SPECIFIED Status: Acute Current Visit: Yes Qualifiers: Encounter type: initial encounter (3) Weakness generalized SNOMED Code(s): 00387770 Code(s): R53.1 - WEAKNESS Status: Acute Current Visit: Yes (4) Atypical chest pain SNOMED Code(s): 727204768 Code(s): R07.89 - OTHER CHEST PAIN Status: Acute Current Visit: Yes - Problem List Review Problem List Initiated/Reviewed/Updated: Yes - My Orders Last 24 Hours: My Active Orders 05/17/19 09:25 EKG 12 Lead [EK] Routine 05/17/19 09:30 Aspirin 162 mg PO .NOW 05/17/19 09:35 Sodium Chloride 0.9% [Saline Flush] 10 ml FLUSH ASDIRECTED PRN 05/17/19 11:58 CULTURE URINE [RM] Stat - Assessment/Plan Last 24 Hours: My Active Orders 05/17/19 09:25 EKG 12 Lead [EK] Routine 05/17/19 09:30 Aspirin 162 mg PO .NOW 05/17/19 09:35 Sodium Chloride 0.9% [Saline Flush] 10 ml FLUSH ASDIRECTED PRN 05/17/19 11:58 CULTURE URINE [RM] Stat
[2019-05-17] MEDS ORDERED: Aspirin 81 MG Tab.Chew PO SCH (09:30)
[2019-05-17] MEDS ORDERED: Sodium Chloride 0.9% 500 ML IV ONE (10:07)
[2019-05-17 10:25] VITALS: BP 123/72; PULSE 78
[2019-05-17] MEDS ORDERED: cefTRIAXone 1 GM in Sodium Chloride 0.9% 50 ML IV ONE (11:37)
--- NOTE | 2019-05-17 11:57 | CR ---
INDICATION: Chest pain, short of breath. CHEST: An AP upright portable view of the chest, 05/17/19, was compared with and revealed the heart to remain normal in size and shape. The aorta is slightly tortuous with calcification in the arch. A mild dextroconvex scoliosis of the upper middle thoracic spine is noted. Overlying EKG leads are noted. No evidence of pulmonary vascular congestion or consolidating pneumonia or effusion is seen. The pulmonary markings appear similar to the previous study, allowing for change in positioning. The lungs appear to be slightly hyperaerated of questionable significance. IMPRESSION: No definite acute process. MTDD
== END 2019-05-17 14:00 | disposition home or self-care (01) ==
LOC: FB.ED 08:54
DX: R07.89 Other chest pain (principal); N39.0 Urinary tract infection, site not specified; R53.1 Weakness; R00.2 Palpitations
CPT/HCPCS: 36415; 71045; 80048; 81001; 83605; 83735; 84443; 84484; 85025; 86140; 87086; 87088; 87186; 93005; 93010; 96361; 96374; 99284; 99285-25; A9270-GY; J0696; J7040; J7050

== ENCOUNTER 2021-06-25 11:21 | Emergency (ER) | payer MEDICARE, BC ==
[2021-06-25] MEDS ORDERED: Meclizine 25 MG Tab PO ONE (11:44)
[2021-06-25] MEDS ORDERED: Ondansetron 4 MG/2 ML SDV IVPUSH ONE (11:54)
[2021-06-25] MEDS ORDERED: Sodium Chloride 0.9% 1,000 ML IV SCH (12:00)
--- NOTE | 2021-06-25 13:01 | EDM.PDOC ---
ED HPI GENERAL MEDICAL PROBLEM - General Chief Complaint: General Stated Complaint: DIZZY Time Seen by Provider: 06/25/21 12:30 Source of Information: Reports: Patient, Family History Limitations: Reports: No Limitations - History of Present Illness INITIAL COMMENTS - FREE TEXT/NARRATIVE: Patient presented to the ED because of dizziness and weakness for 1 month. She said she feels dizzy when she gets up and have some spinning sensation. There is nausea associated with the vertigo but no vomiting. No associated headache, tinnitus. She also c/o occasional palpitations but no chest pain. She has a history of hypotension treated with midodrin. - Related Data Allergies Allergy/AdvReac Type Severity Reaction Status Date / Time No Known Allergies Allergy Verified 05/17/19 16:14 Home Meds: Home Meds Multivitamin [Multivitamins] 1 cap PO DAILY 11/27/13 [History] Acetaminophen/Diphenhydramine [Tylenol Pm Ex-Strength Caplet] 1 tab PO Q8HR PRN 04/23/16 [History] Calcium Carbonate/Vitamin D3 [Calcium 500-Vit D3 200 Tablet] 1 tab PO DAILY 04/23/16 [History] E-Z Eye Vitamin 2 tab PO DAILY 04/23/16 [History] Metoprolol Succinate 50 mg PO DAILY 04/23/16 [History] Meloxicam [Mobic] 15 mg PO DAILY 12/08/16 [History] Acetaminophen/Diphenhydramine [Tylenol Pm Ex-Strength Caplet] 2 tab PO BEDTIME PRN 12/19/18 [History] Calcium Carbonate [Calcium Antacid] 1 tab PO TID 12/19/18 [History] Lifitegrast [Xiidra] 1 drop EYEBOTH BID 12/19/18 [History] Omeprazole 1 cap PO DAILY PRN 12/19/18 [History] Cefuroxime Axetil [Ceftin] 500 mg PO BID #10 tablet 05/17/19 [Rx] Meclizine HCl 25 mg PO Q6H #30 tablet 06/25/21 [Rx] Ondansetron [Zofran ODT] 4 mg PO Q4H PRN #10 tab.dis 06/25/21 [Rx] Past Medical History HEENT History: Reports: Cataract, Hard of Hearing, Impaired Vision Cardiovascular History: Reports: Arrhythmia Gastrointestinal History: Reports: Colon Polyp Genitourinary History: Reports: Renal Calculus, UTI, Recurrent PUNCH CARD OPERATOR History: Reports: Dysfunctional Uterine Bleeding, Fibroids, , Spontaneous Other PUNCH CARD OPERATOR History: HYSTERECTOMY Musculoskeletal History: Reports: Arthritis Endocrine/Metabolic History: Reports: Osteoporosis Hematologic History: Reports: Anemia Oncologic (Cancer) History: Reports: Other (See Below) Other Oncologic History: SKIN CA - Infectious Disease History Infectious Disease History: Reports: Chicken Pox, Mumps - Past Surgical History HEENT Surgical History: Reports: Cataract Surgery, Tonsillectomy GI Surgical History: Reports: Colonoscopy Female Surgical History: Reports: Hysterectomy Musculoskeletal Surgical History: Reports: Joint Replacement, Knee Replacement Social & Family History - Family History Family Medical History: No Pertinent Family History - Caffeine Use Caffeine Use: Reports: Coffee, Soda ED ROS GENERAL - Review of Systems Review Of Systems: See Below Constitutional: Reports: No Symptoms, Weakness HEENT: Reports: Vertigo Respiratory: Reports: No Symptoms Cardiovascular: Reports: No Symptoms Endocrine: Reports: No Symptoms GI/Abdominal: Reports: No Symptoms : Reports: No Symptoms Musculoskeletal: Reports: No Symptoms Skin: Reports: No Symptoms Neurological: Reports: No Symptoms, Change in Speech ED EXAM, GENERAL - Physical Exam Exam: See Below Exam Limited By: No Limitations General Appearance: Alert, No Apparent Distress Eye Exam: Bilateral Eye: PERRL Ears: Normal External Exam, Normal Canal Nose: Normal Inspection, Normal Mucosa, No Blood Throat/Mouth: Normal Inspection, Normal Lips, Normal Teeth Head: Atraumatic, Normocephalic Neck: Normal Inspection, Supple, Non-Tender, Full Range of Motion Respiratory/Chest: No Respiratory Distress, Lungs Clear, Normal Breath Sounds, No Accessory Muscle Use, Chest Non-Tender Cardiovascular: Normal Peripheral Pulses, Regular Rate, Rhythm, No Edema, No Gallop, No JVD, No Murmur GI/Abdominal: Normal Bowel Sounds, Soft, Non-Tender, No Organomegaly, No Distention, No Abnormal Bruit, No Mass Back Exam: Normal Inspection, Full Range of Motion Extremities: Normal Inspection, Normal Range of Motion, Non-Tender, No Pedal Edema Neurological: Alert, Oriented, CN II-XII Intact, Normal Cognition, Normal Reflexes, No Motor/Sensory Deficits Psychiatric: Normal Affect Skin Exam: Warm, Intact, Normal Color #1 Interpretation EKG Date: 06/25/21 Time: 14:27 Rhythm: NSR Rate (Beats/Min): 61 [place]: Normal P-Wave: Present QRS: Normal ST-T: Normal QT: Normal CA/PQ Interval: 161 Comparison: No Change EKG Interpretation Comments: NSR LAE Course - Vital Signs Text/Narrative:: Lab/EKG/CXR result was reviewed and discussed with patient and her daughter NS 1 L bolus Zofran 4 mg IV x1 Meclizine 25 mg PO x1 - Orders/Labs/Meds Orders: Active Orders 24 hr Category Date Time Status EKG Documentation Completion [RC] ASDIRECTED Care 06/25/21 11:45 Active CXR [Chest 1V Frontal] [CR] Stat Exams 06/25/21 12:16 Taken Sodium Chloride 0.9% [Normal Saline] 1,000 ml Med 06/25/21 12:00 Active IV ASDIRECTED EKG 12 Lead [EK] Routine Ther 06/25/21 11:44 Ordered Medication Orders Sodium Chloride (Normal Saline) 1,000 mls @ 999 mls/hr IV ASDIRECTED OREN Last Admin: 06/25/21 12:40 Dose: 999 mls/hr Documented by: JOSE FRANCISCO Labs: Laboratory Tests 06/25/21 06/25/21 06/25/21 Range/Units 12:05 12:05 12:05 WBC 5.4 (3.0-10.3) x10-3/uL RBC 4.26 (3.60-5.20) x10(6)uL Hgb 12.9 (11.4-15.5) g/dL Hct 38.6 (34.2-48.2) % MCV 90.6 (76.7-100.5) fL MCH 30.3 (23.9-33.9) pg MCHC 33.4 (31.9-34.8) g/dL RDW 13.4 (12.3-16.5) % Plt Count 234 (151-488) x10(3)uL MPV 8.3 (7.1-12.4) fL Neut % (Auto) 79.7 H (30.8-76.2) % Lymph % (Auto) 6.5 L (18.4-52.1) % [place] % (Auto) 11.2 (4.4-15.7) % Eos % (Auto) 2.0 (0.6-8.1) % Baso % (Auto) 0.6 (0.2-1.5) % Neut # (Auto) 4.3 (1.5-6.3) x10-3/uL Lymph # (Auto) 0.4 L (1.0-4.4) x10-3/uL [place] # (Auto) 0.6 (0.3-1.0) x10-3/uL Eos # (Auto) 0.1 (0.0-0.8) x10-3/uL Baso # (Auto) 0.0 (0.0-0.1) x10-3/uL Sodium 137 (135-145) mmol/L Potassium 3.4 L (3.5-5.3) mmol/L Chloride 104 (100-110) mmol/L Carbon Dioxide 24 (21-32) mmol/L BUN 15 (7-18) mg/dL Creatinine 0.8 (0.55-1.02) mg/dL Est Cr Clr Drug Dosing TNP Estimated GFR (MDRD) > 60 (>60) BUN/Creatinine Ratio 18.8 (9-20) Glucose 130 H (80-116) mg/dL Calcium 8.6 (8.6-10.2) mg/dL Total Bilirubin 0.6 (0.1-1.3) mg/dL AST 36 H (5-25) IU/L ALT 17 (12-36) U/L Alkaline Phosphatase 116 H (56-112) IU/L Troponin I 6.1 (4.0-60.3) pg/mL Total Protein 6.7 (6.0-8.0) g/dL Albumin 3.6 (3.2-4.6) g/dL Globulin 3.1 g/dL Albumin/Globulin Ratio 1.2 Meds: Medications Generic Name Dose Route Start Last Admin Trade Name Freq PRN Reason Stop Dose Admin Sodium Chloride 1,000 mls @ 999 mls/hr 06/25/21 12:00 06/25/21 12:40 Normal Saline IV 999 mls/hr ASDIRECTED OREN Administration Discontinued Medications Generic Name Dose Route Start Last Admin Trade Name Freq PRN Reason Stop Dose Admin Meclizine HCl 25 mg 06/25/21 11:44 06/25/21 12:44 Meclizine 25 Mg Tab PO 06/25/21 11:45 25 mg ONETIME ONE Administration Ondansetron HCl 4 mg 06/25/21 11:54 06/25/21 12:44 Ondansetron 4 Mg/2 Ml Sdv IVPUSH 06/25/21 11:55 4 mg ONETIME ONE Administration Departure - Departure Time of Disposition: 14:30 Disposition: Home, Self-Care 01 Condition: Good Clinical Impression: Chronic vertigo - Discharge Information Prescriptions: Meclizine HCl 25 mg PO Q6H #30 tablet Ondansetron [Zofran ODT] 4 mg PO Q4H PRN #10 tab.dis PRN Reason: Nausea Instructions: Dizziness, [id number] Referrals: Mayte Hung REEL ASSEMBLER [Primary Care Provider] - Forms: ED Department Discharge Additional Instructions: Please read discharge instructions on chronic vertigo Take Meclizine 15 mg every 6 hours for 3 days then as needed Zofran ODT 4 mg every 4 hours as needed for nausea Follow up with your Neurologist and ENT doctor - My Orders Last 24 Hours: My Active Orders 06/25/21 11:44 EKG 12 Lead [EK] Routine 06/25/21 11:45 EKG Documentation Completion [RC] ASDIRECTED 06/25/21 12:00 Sodium Chloride 0.9% [Normal Saline] 1,000 ml IV ASDIRECTED 06/25/21 12:16 CXR [Chest 1V Frontal] [CR] Stat - Assessment/Plan Last 24 Hours: My Active Orders 06/25/21 11:44 EKG 12 Lead [EK] Routine 06/25/21 11:45 EKG Documentation Completion [RC] ASDIRECTED 06/25/21 12:00 Sodium Chloride 0.9% [Normal Saline] 1,000 ml IV ASDIRECTED 06/25/21 12:16 CXR [Chest 1V Frontal] [CR] Stat
[2021-06-25 15:36] VITALS: BP 123/81; PULSE 81
== END 2021-06-25 15:00 | disposition home or self-care (01) ==
LOC: FB.ED 11:21
DX: R42 Dizziness and giddiness (principal); Z79.899 Other long term (current) drug therapy
CPT/HCPCS: 71045; 80053; 84484; 85025; 93005; 96374; 99284-25; A9270-GY; J2405; J7030

== ENCOUNTER 2022-05-29 15:01 | Emergency (ER) | payer MEDICARE ==
[2022-05-29] MEDS ORDERED: Ondansetron 4 MG Tab.DIS PO ONE (15:02)
[2022-05-29] MEDS ORDERED: Sodium Chloride 0.9% 1,000 ML IV ONE (16:16)
[2022-05-29 16:48] LABS: ESTIMATED GFR 72 mL/min (>60)
[2022-05-29] MEDS ORDERED: Ondansetron 4 MG/2 ML SDV IVPUSH ONE (17:26)
[2022-05-29] MEDS ORDERED: Potassium Chloride 20 MEQ Tab.ER PO ONE (17:27)
[2022-05-29 19:02] VITALS: BP 176/56; PULSE 56
== END 2022-05-29 17:50 | disposition home or self-care (01) ==
LOC: FB.ED 15:01
DX: K82.8 Other specified diseases of gallbladder (principal); E87.6 Hypokalemia; M19.90 Unspecified osteoarthritis, unspecified site; D64.9 Anemia, unspecified; Z79.899 Other long term (current) drug therapy
CPT/HCPCS: 36415; 80053; 85025; 86140; 96361; 96374; 99284; A9270; J2405; J7030; Q0162